=== PATIENT | female | born 1985 | race Caucasian/White ===

== ENCOUNTER 2017-02-04 11:45 | Emergency (ER) | payer OTHER ==
--- NOTE | ~2017-02-04 | CT57 ---
[facility]. [facility] A Service [facility] RADIOLOGY TEXT RESULTS PATIENT: PERRY PALOMINO LOCATION: SED : 85 UNIT #: [id number] AGE: [address]: Kenneth Thompson MD SEX: F ORDER DR: [id number] [address] [address] [id number] E MR#: [id number] Acc #: [id number] NAME: PERRY PALOMINO. : 1985 SEX: F STUDY DATE/TIME: 02/04/2017 13:23 UNIT: SED ROOM: STUDY DESCRIPTION: CT Chest Wo Cont Attending Physician: Kenneth Thompson M.D. Ordering Physician: Kenneth Thompson M.D. Primary Care Physician: [facility] MEDICAL IMAGING REPORT This report is preliminary unless electronic signature is present. EXAM CT chest without contrast HISTORY Shortness of air, chest pain x2 months off and on, worse today. COMPARISON Two-view chest 02/04/2017. TECHNIQUE Axial images performed through the chest without contrast. Multiplanar reconstructions. This CT exam was performed with one or more of the following radiation dose reduction techniques: Automatic exposure control, adjustment of mA and/or kV according to patient size, and iterative reconstruction. FINDINGS A 12 mm partially calcified nodule is seen in the anterior aspect of the right middle lobe compatible with a granuloma. A second smaller 5 mm lesion is seen in the posterior aspect of the left upper lobe with a small satellite nodule. These both are compatible with granulomas. Background parenchyma appears normal. Trachea and bronchi appear normal. A small amount of residual thymic tissue noted. Heart, aorta, and pulmonary vessels unremarkable on this unenhanced study. No significant adenopathy. Upper abdomen unremarkable. Osseous structures thoracic inlet appear normal. IMPRESSION No acute intrathoracic abnormality identified. CT confirms the 12 mm nodule on chest radiograph to represent a granuloma in the right middle lobe and there is a smaller approximately 5 mm granuloma in the posterior medial aspect of the left upper lobe. Findings compatible with previous granulomas disease. [facility] A Service [facility] RADIOLOGY TEXT RESULTS PATIENT: PERRY PALOMINO [id number] UNIT #: [id number] AGE: [address]: Kenneth Thompson MD SEX: F ORDER DR: Dictated by... Katarina Abdi M.D. THIS IS AN ELECTRONICALLY VERIFIED REPORT Katarina Abdi M.D. at 02/04/2017 5:14 PM MISHEL/jarred TD: 02/04/2017 16:02 JOB #: [id number] MEDICAL IMAGING REPORT Page 1 of 1
--- NOTE | ~2017-02-04 | EKG ---
PATIENT: PERRY PALOMINO UNIT #: [id number] Ventricular Rate: 87 BPM Atrial Rate: 87 BPM P-R Interval: 152 ms QRS Duration: 94 ms Q-T Interval: 376 ms QTC Calculation(Bezet): 452 ms P [place]: 43 degrees Calculated R [place]: 33 degrees Calculated T [place]: 21 degrees Diagnosis Line: Normal sinus rhythm Diagnosis Line: Normal ECG Diagnosis Line: Diagnosis Line: Confirmed by SVETLANA TONY MD ([id number]) on Diagnosis Line: 02/05/2017 2:14:49 PM INTERPRETING MD: CHAVO MARIE
--- NOTE | ~2017-02-04 | CR63 ---
[facility] RADIOLOGY TEXT RESULTS PATIENT: PERRY PALOMINO LOCATION: SED : 85 UNIT #: [id number] AGE: [address]: Kenneth Thompson MD SEX: F ORDER DR: [id number] [place] [id number] E MR#: [id number] Acc #: [id number] NAME: PERRY PALOMINO. : 1985 SEX: F STUDY DATE/TIME: 02/04/2017 12:41 UNIT: SED ROOM: STUDY DESCRIPTION: CR Chest 2 View Attending Physician: Kenneth Thompson M.D. Ordering Physician: Kenneth Thompson M.D. Primary Care Physician: [facility]. MEDICAL IMAGING REPORT This report is preliminary unless electronic signature is present. EXAM Chest 02/04/2017, [facility]. HISTORY 31-year-old woman, short of air, chest pain off and on past 2 months. History of cough, short of breath. High blood pressure. Patient is smoker. COMPARISON None. FINDINGS PA and lateral chest views demonstrate normal cardiac size and configuration. Hilar structures are preserved. Mediastinal contours appear normal. Left lung is expanded and clear. Right lung is fully expanded. There is, however, a coin lesion projecting in the right middle lobe location measuring approximately 12 mm in diameter. This appears well circumscribed with certainly benign characteristics. However, given the smoking history and no comparison studies, further imaging is recommended to include chest CT. This could be performed without contrast. Costophrenic angles are preserved. IMPRESSION 12-mm coin lesion present in the right middle lobe with no comparison chest films available. Recommend noncontrast chest CT for followup up characterization. Dictated by... Inder Souza M.D. THIS IS AN ELECTRONICALLY VERIFIED REPORT [facility] RADIOLOGY TEXT RESULTS PATIENT: PERRY PALOMINO LOCATION: SED : 85 UNIT #: [id number] AGE: [address]: Kenneth Thompson MD SEX: F ORDER DR: Inder Souza M.D. at 02/04/2017 3:40 PM PAULA/chandler TD: 02/04/2017 15:20 JOB #: [id number] MEDICAL IMAGING REPORT Page 1 of 1
[~2017-02-04 11:45] MED LIST: BACTRIM DS TABL1 TA1 PO; BACTRIM DS TABL1 TAB PO; DICLOFENAC PO; FLEXERIL PO; FLEXERIL10 MG PO; FLINTSTONE VITAMINS; HYDROCODON-ACE1 EAC7 PO; NO MEDICATIONS; ORUDIS75 M1 PO; PHENERGAN25 MG PO; PREDNISONE PO; TRAMADOL HCL50 M1 PO; TYLENOL #3 PO; ULTRAM PO; VICODIN 5/500 T1 TAB PO; VOLTAREN75 MG PO; ZANAFLEX2 MG PO
== END 2017-02-04 14:05 | disposition home or self-care (01) ==
LOC: SED 11:45
DX: M94.0 Chondrocostal junction syndrome [Tietze] (principal); F17.200 Nicotine dependence, unspecified, uncomplicated; Z88.8 Allergy status to other drugs, medicaments and biological substances
CPT/HCPCS: 71020; 71250; 93005; 96372; 99285; J1885